=== PATIENT | male | born 1960 | race Caucasian/White ===

== ENCOUNTER 2024-09-03 16:00 | Outpatient (CLI) | payer MEDICARE, BC | END 2024-09-03 16:01 | disposition home or self-care (01) | LOC: CSHSLEEP 16:00 | PROVIDERS: ATTEND Internal Medicine Cardiovascular Disease | DX: G47.33 Obstructive sleep apnea (adult) (pediatric) (principal); R53.83 Other fatigue; R06.83 Snoring; E66.9 Obesity, unspecified; Z68.43 Body mass index [BMI] 50.0-59.9, adult; I10 Essential (primary) hypertension | CPT/HCPCS: 95800 ==